=== PATIENT | female | born 1985 | race Caucasian/White ===

== ENCOUNTER 2017-10-20 10:45 | Emergency (ER) | payer OTHER ==
[~2017-10-20] VITALS: Ht 157.5 cm; Wt 88.5 kg
--- OUTSIDE RECORDS SUMMARY | ~2017-10-20 | XMS | Clinical Summary ---
Demographics + + + | Address | [address] | | | [place] [address] | + + + | Home Phone | | + + + | Preferred Language | Unknown | + + + | Marital Status | Single | + + + | Jew Affiliation | Unknown | + + + | Race | Unknown | + + + | Ethnic Group | Unknown | + + + Author + + + | Author | [facility] | | | and Satishana | + + + | Organization | [facility] | | | and Satishana | [...] Team Providers + +------+ + | Care Paper Cone Machine Tender Name | Role | Phone | + +------+ + | Norberto York MD | PP | Unavailable | + +------+ + Allergies No Known Allergies Current Medications + + +-------+---------+------+------+-------+ | Prescription | Sig. | Disp. | Refills | Star | End | Statu | | | | | | t | Date | s | | | | | | Date | | | + + +-------+---------+------+------+-------+ | ketorolac | Take 10 mg by mouth | | | | | Activ | | (TORADOL) 10 MG | every 6 hours as | | | | | e | | tablet | needed for Pain. | | | | | | + + +-------+---------+------+------+-------+ | ondansetron | Take 8 mg by mouth | | | | | Activ | | (ZOFRAN ODT) 8 mg | every 8 hours as | | | | | e | | disintegrating | needed for Nausea. | | | | | | | tablet | | | | | | | + + +-------+---------+------+------+-------+ Active Problems + + + | Problem [...] + | Blood Pressure | 130/60 | 10/22/2014 1249 PDT | + + + + | Pulse | 68 | 10/22/20141248 PDT | + + + + | Temperature | 36.7 C (98 F) | 10/22/20141139 PDT | + + + + | Respiratory Rate | 18 | 10/22/20141139 PDT | + + + + | Oxygen Saturation | 97% | 10/22/20141248 PDT | + + + + | Inhaled Oxygen | - | - | | Concentration | | | + + + + | Weight | 88.5 kg (195 lb) | 10/22/20141139 PDT | + + + + | Height | 160 cm (5' 3") | 10/22/2014 1140 PDT | + + + + | Body Mass Index | 34.54 | 10/22/2014 1140 PDT | + + + + Plan [...] | Vaccine: | | | | | Pneumococcal 19-64 | 5 | | | | (PPSV23 only) Medium | | | | | Risk (1 of 1 - | | | | | PPSV23) | | | | + + + + + | Cervical Cancer | | | | | Screening (Pap) | 6 | | | + + + + + | Vaccine: Influenza | | | | | (#1) | 8 | | | + + + + + Results Not on filefrom Last 3 Months Insurance +-------+--------+ +------+ +---------+ | Payer | Benefi | Subscriber | Type | Phone | Address | | | t Plan | ID | | | | | | / | | | | | | | Group | | | | | +-------+--------+ +------+ +---------+ | CIGNA | CIGNA | [id number] | PPO | [phone] | | | PPO | | | [phone] | | +-------+--------+ +------+ +---------+ + +--------+ +--------+ + + | Guarantor Name | Accoun | Relation to | Date | Phone | Billing Address | | | t Type | Patient | of | | | | | | | | | | + +--------+ +--------+ + + | JOSE A ROSE | Person | Self | [birth year] | Home: | [address] | | | al/Fam | | 1986 | [phone] | [place] [address] | | | latha | | | [phone] | | + +--------+ +--------+ + +
--- OUTSIDE RECORDS SUMMARY | ~2017-10-20 | XMS | Clinical Summary ---
Demographics + + + | Address | [address] | | | [place] [address] | + + + | Home Phone | | + + + | Preferred Language | Unknown | + + + | Marital Status | Single | + + + | Pentecostal Affiliation | Unknown | + + + | Race | Unknown | + + + | Ethnic Group | Unknown | + + + Author + + + | Author | [facility] | + + + | Organization | [facility] | + + + | Address [...] Team Providers + +------+ + | Care Account Review Specialist Name | Role | Phone | + [...] +------+-------+ + | CIGNA | CIGNA | [id number] | | | | | | - | | | | | | | [place] | | | | | | | [place] | | | | | + +--------+ +------+-------+ + | MEDICAID | [place] | [id number] | | | [address] | | | N | | | | [place], [place] | | | [place] | | | | [address] | | | [employer] | | | | | + +--------+ [...] | 1986 | [phone] | [place] [address] | | | latha | | | [phone] | | + +--------+ +--------+ + +
[~2017-10-20 10:45] MED LIST: PROVENTIL HFA6.7 GM INH
[2017-10-20] MEDS ORDERED: ZOFRAN ODT4 MG PO ×2 (11:07→13:27)
[2017-10-20] MEDS ORDERED: NAPROSYN500 MG PO (13:27)
== END 2017-10-20 13:29 | disposition home or self-care (01) ==
LOC: ED 10:45
DX: R10.11 Right upper quadrant pain (principal); J45.909 Unspecified asthma, uncomplicated; Z79.899 Other long term (current) drug therapy
CPT/HCPCS: 71045; 74177; 80053; 81001; 83690; 84703; 85025; 96374; 96375; 99284; J1885; J2405; Q9967

== ENCOUNTER 2018-06-05 17:48 | Emergency (ER) | payer BC, OTHER ==
[~2018-06-05] VITALS: Ht 157.5 cm; Wt 88.5 kg
--- OUTSIDE RECORDS SUMMARY | ~2018-06-05 | XMS | Clinical Summary ---
Demographics + + + | Address | [address] | | | [place] [address] | + + + | Home Phone | | + + + | Preferred Language | Unknown | + + + | Marital Status | Single | + + + | Quaker Affiliation | Unknown | + + + | Race | Unknown | + + + | Ethnic Group | Unknown | + + + Author + + + | Author | [facility] | | | and Satishana | + + + | Organization | [facility] | | | and Satishana | + + + | Address | Unknown | + + + | Phone | Unavailable | + + + Support + + +---------+ + | Name | Relationship | Address | Phone | + + +---------+ + | LUCINDA ROSE | ECON | Unknown | | + + +---------+ + | Chaparro Dean | ECON | Unknown | | + + +---------+ + | Lucinda Roes | ECON | Unknown | | + + +---------+ + | Faraz Rose | ECON | Unknown | | + + +---------+ + Care Team Providers + +------+ + | Care Registration Manager Name | Role | Phone | + +------+ + | Norberto York MD | PP | Unavailable | + +------+ + Allergies No Known Allergies Medications + + + +---------+------+------+-------+ | Medication | Sig | Dispensed | Refills | Star | End | Statu | | | | | | t | Date | s | | | | | | Date | | | + + + +---------+------+------+-------+ | ketorolac | Take 10 mg by mouth | | 0 | | | Activ | | (TORADOL) 10 MG | every 6 hours as | | | | | e | | tablet | needed for Pain. | | | | | | + + + +---------+------+------+-------+ | ondansetron | Take 8 mg by mouth | | 0 | | | Activ | | (ZOFRAN ODT) 8 mg | every 8 hours as | | | | | e | | disintegrating | needed for Nausea. | | | | | | | tablet | | | | | | | + + + +---------+------+------+-------+ Active Problems + + + | Problem | Noted Date | + + + | High blood pressure | 03/10/2014 | + + + | ASTHMA | | + + + | HYPERLIPIDEMIA | | + + + | CHRONIC KIDNEY DISEASE STAGE I | | + + + | DEPRESSION, HX OF | | + + + Social History + +-------+ +--------+------+ | Tobacco Use | Types | Packs/Day | Years | Date | | | | | Used | | + +-------+ +--------+------+ | Never Smoker | | | | | + +-------+ +--------+------+ + + +---------+ + | Alcohol Use | Drinks/We | oz/Week | Comments | | | ek | | | + + +---------+ + | No | | | | + + +---------+ + + + + | Sex Assigned at | Date Recorded | | | | + + + | Not on file | | + + + + + + + | Job Start Date | Occupation | Industry | + + + + | Not on file | Not on file | Not on file | + + + + + + + + | Travel History | Travel Start | Travel End | + + + + + + | No recent travel history available. | + + Last Filed Vital Signs + + + + | Vital Sign | Reading | Time Taken | + + + + | Blood Pressure | 130/60 | 10/22/20149 PDT | + + + + | Pulse | 68 | 10/22/20141248 PDT | + + + + | Temperature | 36.7 C (98 F) | 10/22/20141139 PDT | + + + + | Respiratory Rate | 18 | 10/22/20141139 PDT | + + + + | Oxygen Saturation | 97% | 10/22/20149 PDT | + + + + | Inhaled Oxygen | - | - | | Concentration | | | + + + + | Weight | 88.5 kg (195 lb) | 10/22/20141139 PDT | + + + + | Height | 160 cm (5' 3") | 10/22/20141139 PDT | + + + + | Body Mass Index | 34.54 | 10/22/20140 PDT | + + + + Plan of Treatment + + + + + | Health Maintenance | Due Date | Last Done | Comments | + + + + + | Vaccine: | | | | | Dtap/Tdap/Td (1 - | 5 | | | | Tdap) | | | | + + + + + | Cervical Cancer | | | | | Screening (Pap) | 6 | | | + + + + + | Vaccine: Influenza | | | | | (Season Ended) | 9 | | | + + + + + Results Not on filefrom Last 3 Months Insurance +-------+--------+ +--------+ +---------+------+ | Payer | Benefi | Subscriber | Effect | Phone | Address | Type | | | t Plan | ID | deyanira | | | | | | / | | Dates | | | | | | Group | | | | | | +-------+--------+ +--------+ +---------+------+ | CIGNA | CIGNA | [id number] | | [phone] | | PPO | | | PPO | | [id number] | 1 | | | | | | | esent | | | | +-------+--------+ +--------+ +---------+------+ + +--------+ +--------+ + + | Guarantor Name | Accoun | Relation to | Date | Phone | Billing Address | | | t Type | Patient | of | | | | | | | | | | + +--------+ +--------+ + + | Yakelin Rose | Person | Self | [birth year] [address] | | [address] | | 1986 | [phone] | [place] [address] | | | latha | | | 0 (Home) | | + +--------+ +--------+ + + Advance Directives Patient has advance care planning documents on file. For more information, please contact:[facility] [place] [address]
--- OUTSIDE RECORDS SUMMARY | ~2018-06-05 | XMS | Clinical Summary ---
Demographics + + + | Address | [address] | | | [place] [address] | + + + | Home Phone | | + + + | Preferred Language | Unknown | + + + | Marital Status | Single | + + + | Mormonism Affiliation | Unknown | + + + | Race | Unknown | + + + | Ethnic Group | Unknown | + + + Author + + + | Author | [facility] | + + + | Organization | [facility] | + + + | Address | Unknown | + + + | Phone | Unavailable | + + + Support + + +---------+ + | Name | Relationship | Address | Phone | + + +---------+ + | Detailed,Message | ECON | Unknown | | + + +---------+ + | Lucinda Alas | ECON | Unknown | | + + +---------+ + | Faraz Alas | ECON | Unknown | | + + +---------+ + Care Team Providers + +------+ + | Care Skull Grinder Name | Role | Phone | + +------+ + PP | Unavailable | + +------+ + Allergies No Known Allergies Current Medications No known medications Active Problems Not on file Social History + +-------+ +--------+------+ | Tobacco Use | Types | Packs/Day | Years | Date | | | | | Used | | + +-------+ +--------+------+ | Former Smoker | | | | | + +-------+ +--------+------+ + +---+---+---+ | Smokeless Tobacco: | | | | | Never Used | | | | + +---+---+---+ + + +---------+ + | Alcohol Use | Drinks/We | oz/Week | Comments | | | ek | | | + + +---------+ + | No | | | | + + +---------+ + + + + | Sex Assigned at | Date Recorded | | | | + + + | Not on file | | + + + Last Filed Vital Signs + + + + | Vital Sign | Reading | Time Taken | + + + + | Blood Pressure | 131/56 | 10/19/2014 9:51 PM PDT | + + + + | Pulse | 66 | 10/19/2014 9:51 PM PDT | + + + + | Temperature | 36.9 C (98.4 F) | 10/19/2014 8:37 PM PDT | + + + + | Respiratory Rate | 12 | 10/19/2014 9:51 PM PDT | + + + + | Oxygen Saturation | 97% | 10/19/2014 9:51 PM PDT | + + + + | Inhaled Oxygen | - | - | | Concentration | | | + + + + | Weight | 88.6 kg (195 lb 5.2 | 10/19/2014 6:30 PM PDT | | | oz) | | + + + + | Height | 157.5 cm (5' 2") | 10/19/2014 6:30 PM PDT | + + + + | Body Mass Index | 35.73 | 10/19/2014 6:30 PM PDT | + + + + Plan [...] Not on filefrom Last 3 Months Insurance + +--------+ +------+-------+ + | Payer | Benefi | Subscriber | Type | Phone | Address | | | t Plan | ID | | | | | | / | | | | | | | Group | | | | | + +--------+ +------+-------+ + | CIGNA | CIGNA | [id number] | | | | | | - | | | | | | | [place] | | | | | | | [place] | | | | | + +--------+ +------+-------+ + | MEDICAID | [place] | [id number] | | | [address] | | | N | | | | [place], [place] | | | [place] | | | | [phone] | | | TRACTOR MECHANIC APPRENTICE | | | | | + +--------+ +------+-------+ + + +--------+ +--------+ + + | Guarantor Name | Accoun | Relation to | Date | Phone | Billing Address | | | t Type | Patient | of | | | | | | | | | | + +--------+ +--------+ + + | JOSE A ALAS | Person | Self | [birth year] | Home: | [address] | | | al/Fam | | 1986 | [phone] | [place] [address] | | | latha | | | [phone] | | + +--------+ +--------+ + +
--- OUTSIDE RECORDS SUMMARY | ~2018-06-05 | XMS | Clinical Summary ---
Demographics + + + | Address | [address] | | | [place] [address] | + + + | Home Phone | | + + + | Preferred Language | Unknown | + + + | Marital Status | Single | + + + | Episcopalian Affiliation | Unknown | + + + | Race | Unknown | + + + | Ethnic Group | Unknown | + + + Author + + + | Author | [facility] | + + + | Organization | [facility] | + + + | Address [...] Team Providers + +------+ + | Care Leather Production Artisan Name | Role | Phone | + [...] +------+-------+ + | CIGNA | CIGNA | [id number] | | | | | | - | | | | | | | [place] | | | | | | | [place] | | | | | + +--------+ +------+-------+ + | MEDICAID | [place] | [id number] | | | [address] | | | N | | | | [place], [place] | | | [place] | | | | [address] | | | LEAD INFORMATICA DEVELOPER | | | | | + +--------+ [...] | 1986 | [phone] | [place] [address] | | | latha | | | [phone] | | + +--------+ +--------+ + +
--- OUTSIDE RECORDS SUMMARY | ~2018-06-05 | XMS | Clinical Summary ---
Demographics + + + | Address | [address] | | | [place] [address] | + + + | Home Phone | | + + + | Preferred Language | Unknown | + + + | Marital Status | Single | + + + | Yarsanism Affiliation | Unknown | + + + | Race | Unknown | + + + | Ethnic Group | Unknown | + + + Author + + + | Author | [facility] | | | and Satishana | + + + | Organization | [facility] | | | and Satishana [...] | + + +---------+ + | Lucinda Rose | ECON | Unknown | | + + +---------+ + | Faraz Rose | ECON | Unknown | | + + +---------+ + Care Team Providers + +------+ + | Care Strapper Operator Name | Role | Phone | + [...] +--------+ +---------+------+ | CIGNA | CIGNA | [id number] | | [phone] | | PPO | | | PPO [...] | | al[address] | | 1986 | [phone] | [place] [address] | | | latha | | | 0 (Home) | | + +--------+ +--------+ + + Advance Directives Patient has advance care planning documents on file. For more information, please contact:[facility] [place] [address]
[~2018-06-05 17:48] MED LIST changes: +NAPROSYN500 MG PO; +ZOFRAN ODT4 MG PO
[2018-06-05] MEDS ORDERED: OMEPRAZOLE20 MG PO (21:20)
== END 2018-06-05 21:44 | disposition home or self-care (01) ==
LOC: ED 17:48
DX: R10.11 Right upper quadrant pain (principal); J45.909 Unspecified asthma, uncomplicated
CPT/HCPCS: 71046; 74177; 80053; 83690; 84703; 85025; 96361; 99284-25; J2405; J7030; Q9967

== ENCOUNTER 2020-05-31 13:28 | Emergency (ER) | payer OTHER ==
[~2020-05-31] VITALS: Ht 157.5 cm; Wt 87.1 kg
[~2020-05-31 13:28] MED LIST changes: +AMOXICILLIN875 MG PO; +OMEPRAZOLE20 MG PO
[2020-05-31] MEDS ORDERED: PRILOSEC OTC20 MG PO (20:07)
[2020-05-31] MEDS ORDERED: ZOFRAN4 MG PO (20:07)
== END 2020-05-31 22:01 | disposition home or self-care (01) ==
LOC: ED 13:28
DX: K59.00 Constipation, unspecified (principal); J45.909 Unspecified asthma, uncomplicated
CPT/HCPCS: 74018; 74177; 80053; 81001; 83690; 84703; 85025; 85379; 96375; 99284-25; J2270; J2405; J7030

== ENCOUNTER 2020-12-07 11:02 | Emergency (ER) | payer OTHER ==
[~2020-12-07] VITALS: Ht 157.5 cm; Wt 88.5 kg
[~2020-12-07 11:02] MED LIST changes: +PRILOSEC OTC20 MG PO; +ZOFRAN4 MG PO
[2020-12-07] MEDS ORDERED: ZOFRAN4 MG PO (16:32)
[2020-12-07] MEDS ORDERED: HYDROCODON-ACE1 EA10 PO (16:32)
== END 2020-12-07 17:21 | disposition home or self-care (01) ==
LOC: ED 11:02
DX: R10.2 Pelvic and perineal pain (principal); J45.909 Unspecified asthma, uncomplicated
CPT/HCPCS: 74176; 76830; 76856; 80053; 81001; 83690; 84703; 85025; 87088; 87210; 96374; 96375; 99284-25; J1885; J2405; J7030

== ENCOUNTER 2021-01-22 13:34 | Emergency (ER) | payer OTHER ==
[~2021-01-22] VITALS: Ht 157.5 cm; Wt 88.5 kg
[~2021-01-22 13:34] MED LIST changes: +HYDROCODON-ACE1 EA10 PO
[2021-01-22] MEDS ORDERED: ONDANSETRON ODT8 MG PO (16:09)
== END 2021-01-22 16:26 | disposition home or self-care (01) ==
LOC: ED 13:34
DX: S06.0X0A Concussion without loss of consciousness, initial encounter (principal); J45.909 Unspecified asthma, uncomplicated; W22.8XXA Striking against or struck by other objects, initial encounter
CPT/HCPCS: 70450; 96374; 96375; 99284-25; J1885; J2405; J7030

== ENCOUNTER 2021-06-18 13:21 | Emergency (ER) | payer OTHER ==
[~2021-06-18] VITALS: Ht 157.5 cm; Wt 84.2 kg
[~2021-06-18 13:21] MED LIST changes: +ONDANSETRON ODT8 MG PO
[2021-06-18] MEDS ORDERED: MOBIC15 MG PO (15:32)
[2021-06-18] MEDS ORDERED: CYCLOBENZAPRINE10 MG PO (15:32)
== END 2021-06-18 15:52 | disposition home or self-care (01) ==
LOC: ED 13:21
DX: S63.501A Unspecified sprain of right wrist, initial encounter (principal); S53.401A Unspecified sprain of right elbow, initial encounter; J45.909 Unspecified asthma, uncomplicated; W19.XXXA Unspecified fall, initial encounter; Y93.39 Activity, other involving climbing, rappelling and jumping off
CPT/HCPCS: 73080; 73110; 96372; 99283-25; J1885

== ENCOUNTER 2021-09-16 13:37 | Emergency (ER) | payer OTHER ==
[~2021-09-16] VITALS: Ht 157.5 cm; Wt 79.7 kg
[~2021-09-16 13:37] MED LIST changes: +CYCLOBENZAPRINE10 MG PO; +MOBIC15 MG PO
== END 2021-09-16 20:14 | disposition home or self-care (01) ==
LOC: ED 13:37
DX: R10.32 Left lower quadrant pain (principal); J45.909 Unspecified asthma, uncomplicated
CPT/HCPCS: 36415; 74177; 76830; 76856; 80053; 81001; 84703; 85025; 96375; 96376; 99284-25; A9270; J1885; J2405; Q9967

== ENCOUNTER 2021-11-09 10:46 | Emergency (ER) | payer OTHER ==
[~2021-11-09] VITALS: Ht 157.5 cm; Wt 76.9 kg
[2021-11-09] MEDS ORDERED: REGLAN10 MG PO (12:02)
[2021-11-09] MEDS ORDERED: ONDANSETRON ODT8 MG PO (12:02)
== END 2021-11-09 12:49 | disposition home or self-care (01) ==
LOC: ED 10:46
DX: K29.00 Acute gastritis without bleeding (principal); J45.909 Unspecified asthma, uncomplicated
CPT/HCPCS: 36415; 80053; 83690; 84703; 85025; 96374; 96375; 99284-25; J1790; J2405; J7030

== ENCOUNTER 2023-02-08 14:32 | Emergency (ER) | payer OTHER ==
[~2023-02-08] VITALS: Ht 157.5 cm; Wt 78.7 kg
[~2023-02-08 14:32] MED LIST changes: +REGLAN10 MG PO
[2023-02-08 14:58] LABS: BASOPHILS 0.1 % (0-2); EOSINOPHILS 0.1 % (0-6); HEMATOCRIT 40.6 % (35.0-50.0); HEMOGLOBIN 13.9 g/dL (12.0-18.0); LYMPHOCYTES 3.7 % (24-44); MCH 31.7 (27-36); MCHC 34.4 g/dl (30-36); MCV 92.4 fl (81-99); MONOCYTES 1.8 % (0-12); NEUTROPHILS 94.3 % (39-80); PLATELET COUNT 269 K/uL (140-440); RBC 4.39 M/ul (4.3-5.7); RDW 12.7 (10.5-15.0)
[2023-02-08 15:13] LABS: BILIRUBIN, URINE NEGATIVE (negative); BLOOD/HGB, URINE TRACE-L (Negative); KETONE, URINE SMALL (Negative); LEUK ESTERASE, URINE NEGATIVE (negative); NITRITE, URINE NEGATIVE (negative)
[2023-02-08 15:13] LABS: ALBUMIN 4.1 g/dL (3.4-5.0); ALBUMIN/GLOBULIN RATIO 1.24 (1.1-2.4); ANION GAP 15.8 (7-21); BILIRUBIN, TOTAL 0.6 ng/dL (0.2-1.0); BUN/CREATININE RATIO 7.59 (6.0-28.6); CALCIUM 8.9 mg/dL (8.5-10.1); CREATININE, SERUM 0.79 mg/dL (0.55-1.02); MAGNESIUM 1.9 mg/dL (1.8-2.4); POTASSIUM 3.8 mmol/L (3.5-5.1); PROTEIN, TOTAL 7.4 g/dL (6.4-8.2)
[2023-02-08 15:21] LABS: CASTS, URINE NONE SEEN \\lpf; CRYSTALS, URINE NONE SEEN (0-1+); EPITHELIAL CELLS, URINE SQUAMOUS 3+ /lpf (0-1+); WHITE BLOOD CELLS, URINE 0-1 /HPF (0-5)
[2023-02-08 15:22] LABS: BACTERIA, URINE RARE /hpf (negative); COLLECTION TYPE, URINE CLEAN CATCH; REFLEX CULTURE, URINE No (No)
[2023-02-08] MEDS ORDERED: AMOX TR-K CLV1 EAC1 PO (18:41)
[2023-02-08 19:40] VITALS: BP 110/54
== END 2023-02-08 19:40 | disposition home or self-care (01) ==
LOC: ED 14:32
PROVIDERS: Emergency Medicine
DX: K57.32 Diverticulitis of large intestine without perforation or abscess without bleeding (principal); J45.909 Unspecified asthma, uncomplicated; Z79.899 Other long term (current) drug therapy
CPT/HCPCS: 36415; 74177; 80053; 81001; 83735; 84703; 85025; 96361; 96375; 99284-25; J1790; J2405; J2543; J7040; Q9967

== ENCOUNTER 2023-04-16 10:49 | Emergency (ER) | payer OTHER ==
[~2023-04-16] VITALS: Ht 157.5 cm; Wt 85.5 kg
[~2023-04-16 10:49] MED LIST changes: +AMOX TR-K CLV1 EAC1 PO
[2023-04-16] MEDS ORDERED: CYCLOBENZAPRINE5 MG PO (11:07)
[2023-04-16] MEDS ORDERED: ondansetron HCL 4 MG/2 ML VIAL IV ONE (11:15)
[2023-04-16 11:26] LABS: BASOPHILS 0.4 % (0-2); EOSINOPHILS 0.8 % (0-6); HEMATOCRIT 42.8 % (35.0-50.0); HEMOGLOBIN 14.6 g/dL (12.0-18.0); LYMPHOCYTES 7.5 % (24-44); MCH 31.8 (27-36); MCV 93.5 fl (81-99); MONOCYTES 3.3 % (0-12); PLATELET COUNT 228 K/uL (140-440); RBC 4.58 M/ul (4.3-5.7); RDW 12.7 (10.5-15.0)
[2023-04-16 11:40] LABS: ALBUMIN 3.6 g/dL (3.4-5.0); BILIRUBIN, TOTAL 0.5 ng/dL (0.2-1.0); BUN/CREATININE RATIO 12.5 (6.0-28.6); CALCIUM 8.9 mg/dL (8.5-10.1); CREATININE, SERUM 0.88 mg/dL (0.55-1.02); PROTEIN, TOTAL 7.2 g/dL (6.4-8.2)
[2023-04-16] MEDS ORDERED: LORazepam 2 MG/ML VIAL IV ONE (12:15)
[2023-04-16] MEDS ORDERED: SODIUM CHLORIDE 0.9% 1,000 ML IV ONE (12:15)
[2023-04-16 13:11] LABS: BILIRUBIN, URINE NEGATIVE (negative); BLOOD/HGB, URINE NEGATIVE (Negative); KETONE, URINE TRACE (Negative); LEUK ESTERASE, URINE NEGATIVE (negative); NITRITE, URINE NEGATIVE (negative)
[2023-04-16] MEDS ORDERED: AMP/SULBACTAM SOD 3 GM in SODIUM CHLORIDE 0.9% 100 ML IV ONE (14:15)
[2023-04-16] MEDS ORDERED: droPERidol 5 MG/2 ML VIAL IV ONE (14:15)
[2023-04-16] MEDS ORDERED: AMP/SULBACTAM SOD 3 GM VIAL IV ONE (14:56)
[2023-04-16] MEDS ORDERED: AMOX TR-K CLV1 EAC1 PO (16:33)
[2023-04-16] MEDS ORDERED: ONDANSETRON ODT8 MG PO (16:33)
[2023-04-16] MEDS ORDERED: PROCHLORPERAZIN10 MG PO (16:33)
[2023-04-16 16:45] VITALS: BP 135/78
== END 2023-04-16 16:45 | disposition home or self-care (01) ==
LOC: ED 10:49
PROVIDERS: Emergency Medicine
DX: K57.32 Diverticulitis of large intestine without perforation or abscess without bleeding (principal); J45.909 Unspecified asthma, uncomplicated; Z79.899 Other long term (current) drug therapy
CPT/HCPCS: 36415; 74177; 80053; 81003; 83690; 84703; 85025; 96375; 99284-25; J0295; J1790; J2060; J2405; J7030; Q9967

== ENCOUNTER 2023-06-21 14:03 | Emergency (ER) | payer OTHER ==
[~2023-06-21] VITALS: Ht 157.5 cm; Wt 78.9 kg
[~2023-06-21 14:03] MED LIST changes: +CYCLOBENZAPRINE5 MG PO; +LACTULOSE10 GM/15 M PO; +PROCHLORPERAZIN10 MG PO
--- OUTSIDE RECORDS SUMMARY | 2023-06-21 14:10 | XMS ---
PreManage Notification: JOSE A ALAS Security Projection Camera Operator Events No recent Security Events currently on file CRITERIA MET - [facility] - 2 Visits in 30 Days CARE PROVIDERS -Can- Dentist: Director Corporate Compliance [facility] PHONE: [phone] Patrice has no Care Guidelines for this patient. Andi VISIT COUNT (12 MO.) 4 [facility] TOTAL 4 NOTE: Visits indicate total known visits. ED/UCC VISIT TRACKING (12 MO.) 06/21/2023 14:04 [facility] [place] TYPE: Emergency COMPLAINT: - VOMTIING 05/31/2023 03:56 [facility] [place] TYPE: Emergency COMPLAINT: - VOMITING DIAGNOSES: - Constipation, unspecified - Left lower quadrant pain - Personal history of other diseases of the digestive system - Unspecified asthma, uncomplicated 04/16/2023 10:50 [facility] [place] TYPE: Emergency COMPLAINT: - VOMITING, ABD PAIN DIAGNOSES: - Diverticulitis of large intestine without perforation or abscess without bleeding - Lower abdominal pain, unspecified - Other alf (current) drug therapy - Unspecified asthma, uncomplicated 02/08/2023 14:[address] [facility] [place] TYPE: Emergency COMPLAINT: - VOMITING DIAGNOSES: - Diverticulitis of large intestine without perforation or abscess without bleeding - Nausea with vomiting, unspecified - Other laborer marine terminal (current) drug therapy - Unspecified asthma, uncomplicated INPATIENT VISIT TRACKING (12 MO.) No inpatient visits to display in this time frame [id number]
[2023-06-21] MEDS ORDERED: SODIUM CHLORIDE 0.9% 500 ML IV ONE (14:45)
[2023-06-21] MEDS ORDERED: ondansetron HCL 4 MG/2 ML VIAL IV ONE (14:45)
[2023-06-21 15:01] LABS: BILIRUBIN, URINE POSITIVE (negative); BLOOD/HGB, URINE TRACE-I (Negative); KETONE, URINE SMALL (Negative); LEUK ESTERASE, URINE NEGATIVE (negative); NITRITE, URINE NEGATIVE (negative); PH, URINE 5.5 (5-7)
[2023-06-21 15:04] LABS: BASOPHILS 0.7 % (0-2); EOSINOPHILS 0.5 % (0-6); HEMOGLOBIN 15.8 g/dL (12.0-18.0); MCH 31.8 (27-36); MCHC 34.3 g/dl (30-36); MCV 92.8 fl (81-99); MONOCYTES 6.2 % (0-12); NEUTROPHILS 84.6 % (39-80); RBC 4.96 M/ul (4.3-5.7); RDW 13.2 (10.5-15.0)
[2023-06-21 15:07] LABS: CASTS, URINE NONE SEEN \\lpf; COLLECTION TYPE, URINE CLEAN CATCH; CRYSTALS, URINE NONE SEEN (0-1+); EPITHELIAL CELLS, URINE SQUAMOUS 2+ /lpf (0-1+); REFLEX CULTURE, URINE No (No)
[2023-06-21 15:08] LABS: BACTERIA, URINE 1+ /hpf (negative)
[2023-06-21] MEDS ORDERED: KETOROLAC TROMETHAMINE 15 MG/ML VIAL IV ONE (15:15)
[2023-06-21] MEDS ORDERED: diphenhydrAMINE HCL 50 MG/ML VIAL IV ONE (15:15)
[2023-06-21] MEDS ORDERED: PROCHLORPERAZINE EDISYLATE 10 MG/2 ML VIAL IV ONE (15:15)
[2023-06-21] MEDS ORDERED: SODIUM CHLORIDE 0.9% 1,000 ML IV ONE (15:15)
[2023-06-21 15:17] LABS: ALBUMIN 4.4 g/dL (3.4-5.0); ALBUMIN/GLOBULIN RATIO 1.16 (1.1-2.4); ANION GAP 19.8 (7-21); BILIRUBIN, TOTAL 0.8 ng/dL (0.2-1.0); BUN/CREATININE RATIO 15.73 (6.0-28.6); CREATININE, SERUM 0.89 mg/dL (0.55-1.02); MAGNESIUM 1.9 mg/dL (1.8-2.4); POTASSIUM 3.8 mmol/L (3.5-5.1); PROTEIN, TOTAL 8.2 g/dL (6.4-8.2)
[2023-06-21 15:27] LABS: AMPHETAMINES, URINE NEGATIVE (NEGATIVE); BARBITURATES, URINE NEGATIVE (NEGATIVE); BENZODIAZEPINE, URINE NEGATIVE (NEGATIVE); BUPRENORPHINE, URINE NEGATIVE (NEGATIVE); CANNABINOID, URINE POSITIVE (NEGATIVE); COCAINE, URINE NEGATIVE (NEGATIVE); ECSTASY, URINE NEGATIVE (NEGATIVE); FENTANYL, URINE NEGATIVE (NEGATIVE); METHADONE, URINE NEGATIVE (NEGATIVE); OPIATES, URINE NEGATIVE (NEGATIVE); OXYCODONE, URINE NEGATIVE (NEGATIVE); PHENCYCLIDINE, URINE NEGATIVE (NEGATIVE)
[2023-06-21] MEDS ORDERED: droPERidol 5 MG/2 ML VIAL IV ONE (17:15)
[2023-06-21] MEDS ORDERED: PROMETHEGAN25 MG PR (19:08)
[2023-06-21 19:25] VITALS: BP 120/78
== END 2023-06-21 19:20 | disposition home or self-care (01) ==
LOC: ED 14:03
PROVIDERS: Emergency Medicine
DX: R11.15 Cyclical vomiting syndrome unrelated to migraine (principal); R10.84 Generalized abdominal pain; J45.909 Unspecified asthma, uncomplicated
CPT/HCPCS: 36415; 80053; 80307; 81001; 83735; 84703; 85025; 85060; 96361; 96374; 96375; 99284-25; J0780; J1200; J1790; J1885; J2405; J7030; J7040

== ENCOUNTER 2023-10-03 18:29 | Emergency (ER) | payer OTHER ==
[~2023-10-03] VITALS: Ht 157.5 cm; Wt 83.1 kg
[~2023-10-03 18:29] MED LIST changes: +PROMETHEGAN25 MG PR
[2023-10-03] MEDS ORDERED: ONDANSETRON ODT8 MG PO ×2 (21:07→23:21)
[2023-10-03] MEDS ORDERED: SENNA-DOCUSATE1 EAC1 PO (21:08)
[2023-10-03 21:27] LABS: BASOPHILS 0.5 % (0-2); EOSINOPHILS 1.1 % (0-6); HEMATOCRIT 41.2 % (35.0-50.0); HEMOGLOBIN 14.3 g/dL (12.0-18.0); LYMPHOCYTES 17.3 % (24-44); MCH 32.2 (27-36); MCHC 34.7 g/dl (30-36); MCV 92.7 fl (81-99); MONOCYTES 7.9 % (0-12); NEUTROPHILS 73.2 % (39-80); PLATELET COUNT 232 K/uL (140-440); RBC 4.45 M/ul (4.3-5.7); RDW 12.1 (10.5-15.0)
[2023-10-03 21:27] LABS: BILIRUBIN, URINE NEGATIVE (negative); BLOOD/HGB, URINE NEGATIVE (Negative); KETONE, URINE SMALL (Negative); LEUK ESTERASE, URINE NEGATIVE (negative); NITRITE, URINE NEGATIVE (negative)
[2023-10-03] MEDS ORDERED: ondansetron HCL 4 MG/2 ML VIAL IV ONE (21:30)
[2023-10-03] MEDS ORDERED: MORPHINE SULFATE 4 MG/ML VIAL IV ONE (21:30)
[2023-10-03] MEDS ORDERED: SODIUM CHLORIDE 0.9% 1,000 ML IV ONE (21:30)
[2023-10-03 21:43] LABS: ALBUMIN 3.9 g/dL (3.4-5.0); ALBUMIN/GLOBULIN RATIO 1.11 (1.1-2.4); ANION GAP 16.3 (7-21); BILIRUBIN, TOTAL 0.7 ng/dL (0.2-1.0); BUN/CREATININE RATIO 11.76 (6.0-28.6); CREATININE, SERUM 0.85 mg/dL (0.55-1.02); POTASSIUM 3.3 mmol/L (3.5-5.1); PROTEIN, TOTAL 7.4 g/dL (6.4-8.2)
[2023-10-03] MEDS ORDERED: DICYCLOMINE HCL10 MG PO (23:21)
[2023-10-03] MEDS ORDERED: ONDANSETRON 4 MG HOME.PACK SL ONE (23:30)
[2023-10-03] MEDS ORDERED: DICYCLOMINE HCL 10 MG HOME.PACK PO ONE ×2 (23:30→23:45)
[2023-10-04 00:03] VITALS: BP 108/57
== END 2023-10-04 00:03 | disposition home or self-care (01) ==
LOC: ED 18:29
PROVIDERS: Family Medicine
DX: K57.30 Diverticulosis of large intestine without perforation or abscess without bleeding (principal); J45.909 Unspecified asthma, uncomplicated; Z79.899 Other long term (current) drug therapy
CPT/HCPCS: 36415; 74177; 80053; 81003; 83690; 84703; 85025; A9270; J2270; J2405; J7030

== ENCOUNTER 2023-10-30 03:06 | Emergency (ER) | payer OTHER ==
[~2023-10-30] VITALS: Ht 157.5 cm; Wt 84.0 kg
[~2023-10-30 03:06] MED LIST changes: +DICYCLOMINE HCL10 MG PO; +SENNA-DOCUSATE1 EAC1 PO
--- OUTSIDE RECORDS SUMMARY | 2023-10-30 03:12 | XMS ---
PreManage Notification: JOSE A ALAS Security Administrative Resident Events No recent Security Events currently on file CRITERIA MET - [facility] - 2 Visits in 30 Days CARE PROVIDERS -[facility]+ Dentist: Case Maker [facility] [place] PHONE: [phone] -Can- Dentist: Case Maker [facility] PHONE: [phone] Patrice has no Care Guidelines for this patient. ERobyn VISIT COUNT (12 MO.) [address] [place] [address] TOTAL 6 NOTE: Visits indicate total known visits. ED/UCC VISIT TRACKING (12 MO.) 10/30/2023 03:07 [facility] [place] TYPE: Emergency COMPLAINT: - VOMITING 10/03/2023 18:30 [facility] [place] TYPE: Emergency COMPLAINT: - ABDOMINAL PAIN DIAGNOSES: - Diverticulosis of large intestine without perforation or abscess without bleeding - Other exterminator (current) drug therapy - Unspecified abdominal pain - Unspecified asthma, uncomplicated 06/21/2023 14:04 [facility] [place] TYPE: Emergency COMPLAINT: - VOMTIING DIAGNOSES: - Cyclical vomiting syndrome unrelated to migraine - Generalized abdominal pain - Unspecified asthma, uncomplicated - Vomiting, unspecified 05/31/2023 03:56 [facility] [place] TYPE: Emergency COMPLAINT: - VOMITING DIAGNOSES: - Constipation, unspecified - Left lower quadrant pain - Personal history of other diseases of the digestive system - Unspecified asthma, uncomplicated 04/16/2023 10:50 [facility] [place] [facility] [place] TYPE: Emergency COMPLAINT: - VOMITING, ABD PAIN DIAGNOSES: - Diverticulitis of large intestine without perforation or abscess without bleeding - Lower abdominal pain, unspecified - Other assisted (current) drug therapy - Unspecified asthma, uncomplicated 02/08/2023 14:32 [facility] [place] TYPE: Emergency COMPLAINT: - VOMITING DIAGNOSES: - Diverticulitis of large intestine without perforation or abscess without bleeding - Nausea with vomiting, unspecified - Other assisted (current) drug therapy - Unspecified asthma, uncomplicated INPATIENT VISIT TRACKING (12 MO.) No inpatient visits to display in this time frame [email or web address]
[2023-10-30 03:30] LABS: BASOPHILS 0.2 % (0-2); EOSINOPHILS 0.6 % (0-6); HEMATOCRIT 42.7 % (35.0-50.0); HEMOGLOBIN 14.7 g/dL (12.0-18.0); LYMPHOCYTES 6.3 % (24-44); MCH 31.7 (27-36); MCHC 34.4 g/dl (30-36); MCV 92.2 fl (81-99); MONOCYTES 4.4 % (0-12); NEUTROPHILS 88.5 % (39-80); PLATELET COUNT 237 K/uL (140-440); RBC 4.63 M/ul (4.3-5.7); RDW 12.9 (10.5-15.0)
[2023-10-30] MEDS ORDERED: droPERidol 5 MG/2 ML VIAL IV ONE (03:30)
[2023-10-30] MEDS ORDERED: SODIUM CHLORIDE 0.9% 1,000 ML IV ONE (03:30)
[2023-10-30] MEDS ORDERED: HYDROmorphone HCL 1 MG/ML SYR IV ONE (03:30)
[2023-10-30 03:46] LABS: ALBUMIN/GLOBULIN RATIO 1.11 (1.1-2.4); ANION GAP 15.4 (7-21); BUN/CREATININE RATIO 11.11 (6.0-28.6); CALCIUM 9.1 mg/dL (8.5-10.1); CREATININE, SERUM 0.99 mg/dL (0.55-1.02); POTASSIUM 3.4 mmol/L (3.5-5.1); PROTEIN, TOTAL 7.6 g/dL (6.4-8.2)
[2023-10-30 06:35] LABS: BILIRUBIN, URINE NEGATIVE (negative); BLOOD/HGB, URINE TRACE-I (Negative); KETONE, URINE TRACE (Negative); LEUK ESTERASE, URINE NEGATIVE (negative); NITRITE, URINE NEGATIVE (negative); PH, URINE 5.5 (5-7)
[2023-10-30 06:49] LABS: BACTERIA, URINE NONE SEEN /hpf (negative); CASTS, URINE NONE SEEN \\lpf; COLLECTION TYPE, URINE CLEAN CATCH; CRYSTALS, URINE NONE SEEN (0-1+); EPITHELIAL CELLS, URINE SQUAMOUS 3+ /lpf (0-1+); RED BLOOD CELLS, URINE 0-1 /hpf (0-5); REFLEX CULTURE, URINE No (No); WHITE BLOOD CELLS, URINE 0-1 /HPF (0-5)
[2023-10-30] MEDS ORDERED: AMOX TR-K CLV1 EAC1 PO (07:23)
[2023-10-30] MEDS ORDERED: ONDANSETRON ODT8 MG PO (07:23)
[2023-10-30] MEDS ORDERED: HYDROCODON-ACE1 EA10 PO (07:23)
[2023-10-30 07:25] LABS: AMPHETAMINES, URINE NEGATIVE (NEGATIVE); BARBITURATES, URINE NEGATIVE (NEGATIVE); BENZODIAZEPINE, URINE NEGATIVE (NEGATIVE); BUPRENORPHINE, URINE NEGATIVE (NEGATIVE); CANNABINOID, URINE POSITIVE (NEGATIVE); COCAINE, URINE NEGATIVE (NEGATIVE); ECSTASY, URINE NEGATIVE (NEGATIVE); FENTANYL, URINE NEGATIVE (NEGATIVE); METHADONE, URINE NEGATIVE (NEGATIVE); OPIATES, URINE POSITIVE (NEGATIVE); OXYCODONE, URINE NEGATIVE (NEGATIVE); PHENCYCLIDINE, URINE NEGATIVE (NEGATIVE)
[2023-10-30 07:49] VITALS: BP 110/52
[2023-10-30] MEDS ORDERED: PROMETHEGAN25 MG PR (21:57)
[2023-10-30] MEDS ORDERED: PROMETHAZINE HC25 M1 PO (21:57)
== END 2023-10-30 07:45 | disposition home or self-care (01) ==
LOC: ED 03:06
PROVIDERS: Family Medicine
DX: K57.32 Diverticulitis of large intestine without perforation or abscess without bleeding (principal); J45.909 Unspecified asthma, uncomplicated; Z79.899 Other long term (current) drug therapy
CPT/HCPCS: 36415; 74177; 80053; 80307; 81001; 83690; 84703; 85025; 96361; 96375; 99284-25; J1170; J1790; J7030; Q9967

== ENCOUNTER 2023-10-30 16:41 | Emergency (ER) | payer OTHER ==
--- OUTSIDE RECORDS SUMMARY | 2023-10-30 16:47 | XMS ---
PreManage Notification: JOSE A ALAS Security Business Management Analyst Events No recent Security Events currently on file CRITERIA MET - [facility] - 2 Visits in 30 Days CARE PROVIDERS -[facility]+ Dentist: House Carpenter [facility] [place] PHONE: [phone] -Can- Dentist: House Carpenter [facility] PHONE: [phone] Patrice has no Care Guidelines for this patient. ERobyn VISIT COUNT (12 MO.) [address] [place] [address] TOTAL 7 NOTE: Visits indicate total known visits. ED/UCC VISIT TRACKING (12 MO.) 10/30/2023 16:41 [facility] [place] TYPE: Emergency COMPLAINT: - VOMITING 10/30/2023 03:07 [facility] [place] TYPE: Emergency COMPLAINT: - VOMITING 10/03/2023 18:30 [facility] [place] TYPE: Emergency COMPLAINT: - ABDOMINAL PAIN DIAGNOSES: - Diverticulosis of large intestine without perforation or abscess without bleeding - Other fdc (current) drug therapy - Unspecified abdominal pain - Unspecified asthma, uncomplicated 06/21/2023 14:[address] [facility] [place] TYPE: Emergency COMPLAINT: - VOMTIING DIAGNOSES: - Cyclical vomiting syndrome unrelated to migraine - Generalized abdominal pain - Unspecified asthma, uncomplicated - Vomiting, unspecified 05/31/2023 03:[address] [facility] [place] TYPE: Emergency COMPLAINT: - VOMITING DIAGNOSES: - Constipation, unspecified - Left lower quadrant pain - Personal history of other diseases of the digestive system - Unspecified asthma, uncomplicated 04/16/2023 10:[address] [facility] [place] TYPE: Emergency COMPLAINT: - VOMITING, ABD PAIN DIAGNOSES: - Diverticulitis of large intestine without perforation or abscess without bleeding - Lower abdominal pain, unspecified - Other continuous churn buttermaker (current) drug therapy - Unspecified asthma, uncomplicated 02/08/2023 14:[address] [facility] [place] TYPE: Emergency COMPLAINT: - VOMITING DIAGNOSES: - Diverticulitis of large intestine without perforation or abscess without bleeding - Nausea with vomiting, unspecified - Other fdc (current) drug therapy - Unspecified asthma, uncomplicated INPATIENT VISIT TRACKING (12 MO.) No inpatient visits to display in this time frame [id number]
[2023-10-30] MEDS ORDERED: droPERidol 5 MG/2 ML VIAL IV ONE ×2 (18:00→19:30)
[2023-10-30] MEDS ORDERED: LORazepam 2 MG/ML VIAL IV PRN (18:00)
[2023-10-30 19:30] LABS: BASOPHILS 0.2 % (0-2); EOSINOPHILS 0.1 % (0-6); HEMATOCRIT 41.6 % (35.0-50.0); HEMOGLOBIN 14.5 g/dL (12.0-18.0); LYMPHOCYTES 4.1 % (24-44); MCH 31.9 (27-36); MCHC 34.8 g/dl (30-36); MCV 91.7 fl (81-99); MONOCYTES 4.5 % (0-12); NEUTROPHILS 91.1 % (39-80); PLATELET COUNT 264 K/uL (140-440); RBC 4.53 M/ul (4.3-5.7); RDW 12.6 (10.5-15.0)
[2023-10-30] MEDS ORDERED: PIPERACILLIN/TAZOBACTAM 4.5 GM in DEXTROSE 5% 100 ML IV ONE (19:30)
[2023-10-30] MEDS ORDERED: PIPERACILLIN/TAZOBACTAM 4.5 GM VIAL ONE (19:46)
[2023-10-30 19:48] LABS: ALBUMIN 4.2 g/dL (3.4-5.0); ALBUMIN/GLOBULIN RATIO 1.14 (1.1-2.4); ANION GAP 16.2 (7-21); BILIRUBIN, TOTAL 1.5 ng/dL (0.2-1.0); BUN/CREATININE RATIO 9.37 (6.0-28.6); CALCIUM 9.5 mg/dL (8.5-10.1); CREATININE, SERUM 0.96 mg/dL (0.55-1.02); POTASSIUM 3.2 mmol/L (3.5-5.1); PROTEIN, TOTAL 7.9 g/dL (6.4-8.2)
[2023-10-30] MEDS ORDERED: LACTATED RINGER'S 1,000 ML IV ONE (20:30)
[2023-10-30] MEDS ORDERED: PROCHLORPERAZINE EDISYLATE 10 MG/2 ML VIAL IV ONE (21:00)
[2023-10-30] MEDS ORDERED: PROMETHEGAN25 MG PR (21:57)
[2023-10-30] MEDS ORDERED: PROMETHAZINE HC25 M1 PO (21:57)
[2023-10-30] MEDS ORDERED: PROMETHAZINE HCL 25 MG SUPP. HOME.PACK PR ONE (22:00)
[2023-10-30 22:13] VITALS: BP 111/46
== END 2023-10-30 22:15 | disposition home or self-care (01) ==
LOC: ED 16:41
PROVIDERS: Family Medicine
DX: K57.92 Diverticulitis of intestine, part unspecified, without perforation or abscess without bleeding (principal); J45.909 Unspecified asthma, uncomplicated; Z90.49 Acquired absence of other specified parts of digestive tract; Z79.899 Other long term (current) drug therapy
CPT/HCPCS: 36415; 80053; 85025; 85060; 96361; 96365; 96375; 96376; 99284-25; J0780; J1790; J2060; J2543; J7121

== ENCOUNTER 2024-02-11 08:42 | Emergency (ER) | payer BC, OTHER ==
[~2024-02-11] VITALS: Ht 157.5 cm; Wt 89.9 kg
[~2024-02-11 08:42] MED LIST changes: +PROMETHAZINE HC25 M1 PO
[2024-02-11] MEDS ORDERED: SODIUM CHLORIDE 0.9% 1,000 ML IV ONE (09:00)
[2024-02-11] MEDS ORDERED: PANTOPRAZOLE SODIUM 40 MG/10 ML VIAL IV ONE (09:00)
[2024-02-11 09:09] LABS: BASOPHILS 0.5 % (0-2); EOSINOPHILS 0.9 % (0-6); HEMATOCRIT 43.6 % (35.0-50.0); HEMOGLOBIN 14.8 g/dL (12.0-18.0); LYMPHOCYTES 7.8 % (24-44); MCH 32.1 (27-36); MCV 94.2 fl (81-99); MONOCYTES 3.1 % (0-12); NEUTROPHILS 87.7 % (39-80); PLATELET COUNT 277 K/uL (140-440); RBC 4.62 M/ul (4.3-5.7); RDW 12.6 (10.5-15.0)
[2024-02-11 09:11] LABS: BILIRUBIN, URINE NEGATIVE (negative); BLOOD/HGB, URINE SMALL (Negative); KETONE, URINE NEGATIVE (Negative); LEUK ESTERASE, URINE NEGATIVE (negative); NITRITE, URINE NEGATIVE (negative); PH, URINE 5.5 (5-7)
[2024-02-11] MEDS ORDERED: ondansetron HCL 4 MG/2 ML VIAL IV ONE (09:15)
[2024-02-11] MEDS ORDERED: KETOROLAC TROMETHAMINE 30 MG/ML VIAL IV ONE (09:15)
[2024-02-11 09:19] LABS: BACTERIA, URINE 1+ /hpf (negative); CASTS, URINE NONE SEEN \\lpf; COLLECTION TYPE, URINE CLEAN CATCH; CRYSTALS, URINE NONE SEEN (0-1+); EPITHELIAL CELLS, URINE SQUAMOUS 4+ /lpf (0-1+); RED BLOOD CELLS, URINE 0-1 /hpf (0-5); REFLEX CULTURE, URINE No (No); WHITE BLOOD CELLS, URINE 0-1 /HPF (0-5)
[2024-02-11 09:27] LABS: ALBUMIN 3.9 g/dL (3.4-5.0); ALBUMIN/GLOBULIN RATIO 1.05 (1.1-2.4); ANION GAP 13.9 (7-21); BILIRUBIN, TOTAL 0.5 ng/dL (0.2-1.0); BUN/CREATININE RATIO 14.43 (6.0-28.6); CALCIUM 9.4 mg/dL (8.5-10.1); CREATININE, SERUM 0.97 mg/dL (0.55-1.02); POTASSIUM 3.9 mmol/L (3.5-5.1); PROTEIN, TOTAL 7.6 g/dL (6.4-8.2)
[2024-02-11] MEDS ORDERED: droPERidol 5 MG/2 ML VIAL IV ONE (09:30)
[2024-02-11 09:48] LABS: AMPHETAMINES, URINE NEGATIVE (NEGATIVE); BARBITURATES, URINE NEGATIVE (NEGATIVE); BENZODIAZEPINE, URINE NEGATIVE (NEGATIVE); BUPRENORPHINE, URINE NEGATIVE (NEGATIVE); CANNABINOID, URINE POSITIVE (NEGATIVE); COCAINE, URINE NEGATIVE (NEGATIVE); ECSTASY, URINE NEGATIVE (NEGATIVE); FENTANYL, URINE NEGATIVE (NEGATIVE); METHADONE, URINE NEGATIVE (NEGATIVE); OPIATES, URINE NEGATIVE (NEGATIVE); OXYCODONE, URINE NEGATIVE (NEGATIVE); PHENCYCLIDINE, URINE NEGATIVE (NEGATIVE)
[2024-02-11] MEDS ORDERED: HYDROmorphone HCL 1 MG/ML SYR IV ONE (10:00)
[2024-02-11] MEDS ORDERED: METOCLOPRAMIDE HCL 10 MG/2 ML SDV IV ONE (10:00)
[2024-02-11 13:08] VITALS: BP 98/62
[2024-02-11] MEDS ORDERED: ONDANSETRON ODT8 MG SL (13:28)
== END 2024-02-11 13:34 | disposition home or self-care (01) ==
LOC: ED 08:42
PROVIDERS: Emergency Medicine
DX: R10.9 Unspecified abdominal pain (principal); F12.90 Cannabis use, unspecified, uncomplicated; R11.2 Nausea with vomiting, unspecified; J45.909 Unspecified asthma, uncomplicated; Z79.899 Other long term (current) drug therapy
CPT/HCPCS: 36415; 74176; 80053; 80307; 81001; 83690; 84703; 85025; 96361; 96374; 96375; 99284-25; J1171; J1790; J1885; J2405; J2470; J2765; J7030

== ENCOUNTER 2024-04-18 09:05 | Emergency (ER) | payer BC, OTHER ==
[~2024-04-18] VITALS: Ht 157.5 cm; Wt 87.1 kg
[~2024-04-18 09:05] MED LIST changes: +ONDANSETRON ODT8 MG SL
[2024-04-18] MEDS ORDERED: VENTOLIN HFA18 GM (09:36)
[2024-04-18] MEDS ORDERED: TYLENOL325 MG PO (09:36)
[2024-04-18] MEDS ORDERED: VENTOLIN HFA18 GM INH (09:53)
[2024-04-18] MEDS ORDERED: OXYMETAZOLINE HCL 30 ML BTL NAS ONE (10:00)
[2024-04-18] MEDS ORDERED: predniSONE 20 MG TAB PO ONE (10:00)
[2024-04-18 11:26] VITALS: BP 138/80
== END 2024-04-18 11:28 | disposition home or self-care (01) ==
LOC: ED 09:05
DX: J02.8 Acute pharyngitis due to other specified organisms (principal); J45.909 Unspecified asthma, uncomplicated; Z79.899 Other long term (current) drug therapy
CPT/HCPCS: 87651; 99283; J7512

== ENCOUNTER 2024-07-06 09:47 | Emergency (ER) | payer BC, OTHER ==
[~2024-07-06] VITALS: Ht 157.5 cm; Wt 80.0 kg
[~2024-07-06 09:47] MED LIST changes: +TYLENOL325 MG PO; +VENTOLIN HFA18 GM; +VENTOLIN HFA18 GM INH
[2024-07-06] MEDS ORDERED: SODIUM CHLORIDE 0.9% 1,000 ML IV PRN (10:00)
[2024-07-06] MEDS ORDERED: droPERidol 5 MG/2 ML VIAL IV ONE (10:00)
[2024-07-06 10:12] LABS: BASOPHILS 0.2 % (0-2); EOSINOPHILS 0.1 % (0-6); HEMATOCRIT 39.8 % (35.0-50.0); LYMPHOCYTES 6.1 % (24-44); MCH 31.8 (27-36); MCHC 35.1 g/dl (30-36); MCV 90.7 fl (81-99); MONOCYTES 2.1 % (0-12); NEUTROPHILS 91.5 % (39-80); PLATELET COUNT 250 K/uL (140-440); RBC 4.39 M/ul (4.3-5.7); RDW 12.9 (10.5-15.0)
[2024-07-06 10:39] LABS: ALBUMIN 3.8 g/dL (3.4-5.0); ALBUMIN/GLOBULIN RATIO 1.12 (1.1-2.4); ANION GAP 14.5 (7-21); BILIRUBIN, TOTAL 0.5 mg/dL (0.2-1.0); BUN/CREATININE RATIO 18.55 (6.0-28.6); CALCIUM 8.6 mg/dL (8.5-10.1); CREATININE, SERUM 0.97 mg/dL (0.55-1.02); POTASSIUM 3.5 mmol/L (3.5-5.1); PROTEIN, TOTAL 7.2 g/dL (6.4-8.2)
[2024-07-06 11:26] VITALS: BP 111/55
== END 2024-07-06 11:26 | disposition home or self-care (01) ==
LOC: ED 09:47
PROVIDERS: Emergency Medicine
DX: R11.15 Cyclical vomiting syndrome unrelated to migraine (principal); J45.909 Unspecified asthma, uncomplicated
CPT/HCPCS: 36415; 80053; 83690; 85025; 96374; 99284-25; J1790; J7030